=== PATIENT | female | born 1945 | race Native Hawaiian/Other Pacific Islander ===

== ENCOUNTER 2022-01-16 09:06 | Observation (INO) | payer OTHER ==
[~2022-01-16] VITALS: Ht 157.5 cm; Wt 71.5 kg
[2022-01-16] VITALS (8 sets, daily range): BP systolic 156–195; BP diastolic 56–77; TEMP 97.2–98.1; Ht 157.5 cm; Wt 71.5 kg
[2022-01-16 09:39] LABS: PLATELET COUNT 316 K/uL (152-353)
[2022-01-16 09:46] LABS: POTASSIUM 3.2 mmol/L (3.6-5.2); SODIUM 141 mmol/L (136-145)
[2022-01-16 09:55] LABS: PARTIAL THROMBOPLASTIN TIME 23.4 SECONDS (24.5-33.6)
[2022-01-16] MEDS ORDERED: MONTELUKAST SOD10 MG PO (16:40)
[2022-01-16] MEDS ORDERED: LEVO0.1T6 PO (16:42)
[2022-01-16] MEDS ORDERED: METO50TA63 PO (16:43)
[2022-01-16] MEDS ORDERED: SIMV20TA2 PO (16:44)
[2022-01-16] MEDS ORDERED: TRIA37.541 PO (16:45)
[2022-01-17 03:52] VITALS: BP 141/61; TEMP 98.6
[2022-01-17 08:00] VITALS: BP 126/59; TEMP 98.6
[2022-01-17 12:00] VITALS: BP 146/74; TEMP 98.1
== END 2022-01-17 14:10 | disposition home or self-care (01) ==
LOC: ED 09:06 → MED/SURG 11:08
PROVIDERS: ADMIT Hospitalist; ATTEND Internal Medicine
DX: R20.2 Paresthesia of skin (principal); E78.49 Other hyperlipidemia; K21.9 Gastro-esophageal reflux disease without esophagitis; M15.8 Other polyosteoarthritis; Z86.73 Personal history of transient ischemic attack (TIA), and cerebral infarction without residual deficits; E03.8 Other specified hypothyroidism; E87.6 Hypokalemia; R47.81 Slurred speech; R42 Dizziness and giddiness; R53.1 Weakness; G81.91 Hemiplegia, unspecified affecting right dominant side; I67.82 Cerebral ischemia; Z79.899 Other long term (current) drug therapy; Z51.81 Encounter for therapeutic drug level monitoring
CPT/HCPCS: 36415; 80053; 80061; 82550; 83880; 84439; 84443; 84484; 85027; 85610; 85730; 87635; 93005; 99220; 99283; G0378; J1650; J2405; U0003